=== PATIENT | female | born 1960 | race Caucasian/White ===

== ENCOUNTER 2017-03-10 00:02 | Emergency (ER) | payer SELFPAY ==
[~2017-03-10 00:02] MED LIST: ASPI1TAB69 PO
[2017-03-10] MEDS ORDERED: SODIUM CHLOR 0.9% 1000 ML INJ 1,000 ML IV SCH (00:17)
[2017-03-10] MEDS ORDERED: SODIUM CHLORIDE 0.9% FLUSH 10 ML FLUSH IVF PRN (00:30)
[2017-03-10] MEDS ORDERED: THIAMINE INJ 100 MG in SODIUM CHLORIDE 0.9% INJ 100 ML IV ONE (00:30)
[2017-03-10 00:34] VITALS: BP 100/52; PULSE 76; RESP 18; TEMP 97.8; O2SAT 95
[2017-03-10 00:46] LABS: AMPHETAMINE, URINE NEG (NEG); BARBITURATES, URINE NEG (NEG); COCAINE, URINE NEG (NEG)
[2017-03-10 00:53] LABS: BLOOD, URINE NEG (NEG); GLUCOSE,URINE NEG (NEG); KETONE, URINE NEG (NEG); NITRITE,URINE NEG (NEG); PH, URINE 5.5 (5.0-8.5)
[2017-03-10 00:54] LABS: AUTOMATED NEUTROPHIL # 7.3 TH/MM3 (1.8-7.7); BASOPHIL # 0.1 TH/MM3 (0-0.2); BASOPHIL % 1.1 % (0.0-2.0); EOSINOPHIL # 0.4 TH/MM3 (0-0.4); EOSINOPHIL % 3.9 % (0.0-4.0); HEMATOCRIT 43.3 % (35.0-46.0); HEMO FLAGS DIFF FINAL; LYMPH % 21.9 % (9.0-44.0); LYMPHOCYTE # 2.4 TH/MM3 (1.0-4.8); MEAN CELL VOLUME 94.9 FL (80.0-100.0); MEAN CORPUSCULAR HEMOGLOBIN 31.4 PG (27.0-34.0); MEAN CORPUSCULAR HGB CONC 33.1 % (32.0-36.0); MONO % 5.9 % (0.0-8.0); NEUT % 67.2 % (16.0-70.0); PLATELET COUNT 272 TH/MM3 (150-450); RED BLOOD COUNT 4.57 MIL/MM3 (4.00-5.30); URINE COLOR STRAW (YELLW/STRAW); WHITE BLOOD COUNT 10.8 TH/MM3 (4.0-11.0)
[2017-03-10 00:57] LABS: COMMENT (UR) CULT NOT INDICATED; CULTURE IF INDICATED CULT NOT INDICATED; RBC, URINE 0-2 /hpf (0-3); SQUAMOUS EPITHELIAL CELL URINE 0-5 /hpf (0-5); WBC, URINE 0-2 /hpf (0-5)
[2017-03-10 00:59] LABS: CHLORIDE 110 MEQ/L (98-107); POTASSIUM 3.5 MEQ/L (3.5-5.1); SODIUM (NA) 146 MEQ/L (136-145)
[2017-03-10 01:03] LABS: ANION GAP 10 MEQ/L (5-15); BICARBONATE 25.8 MEQ/L (21.0-32.0); BLOOD UREA NITROGEN 10 MG/DL (7-18)
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
[2017-03-10 01:06] LABS: ALT (GPT) 23 U/L (10-53); AST (GOT) 31 U/L (15-37)
[2017-03-10] MEDS ORDERED: IBUPROFEN 600 MG TAB ONE (02:12)
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
[2017-03-10 02:30] LABS: ALKALINE PHOSPHATASE 102 U/L (45-117); GLOMERULAR FILTRATION RATE 126 ML/MIN (>89); TOTAL BILIRUBIN ADULT 0.2 MG/DL (0.2-1.0)
[2017-03-10] MEDS ORDERED: IBUPROFEN 600 MG TAB PO ONE (02:45)
== END 2017-03-10 02:45 | disposition home or self-care (01) ==
LOC: PHED 00:02
DX: S00.93XA Contusion of unspecified part of head, initial encounter (principal); F10.129 Alcohol abuse with intoxication, unspecified; S16.1XXA Strain of muscle, fascia and tendon at neck level, initial encounter; S29.012A Strain of muscle and tendon of back wall of thorax, initial encounter; D64.9 Anemia, unspecified; F17.210 Nicotine dependence, cigarettes, uncomplicated; Y09 Assault by unspecified means; Y07.03 Male partner, perpetrator of maltreatment and neglect; Z59.0 Homelessness
CPT/HCPCS: 70450; 72125; 72128; 80053; 80307; 81001; 85025

== ENCOUNTER 2017-03-10 17:19 | Emergency (ER) | payer SELFPAY ==
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
== END 2017-03-10 17:25 | disposition left against medical advice (07) ==
LOC: PHED 17:19
DX: F10.129 Alcohol abuse with intoxication, unspecified (principal); F17.210 Nicotine dependence, cigarettes, uncomplicated; D64.9 Anemia, unspecified
CPT/HCPCS: 99281

== ENCOUNTER 2018-04-13 12:32 | Emergency (ER) | payer SELFPAY ==
[~2018-04-13] VITALS: Ht 157.5 cm; Wt 61.0 kg
[~2018-04-13 12:32] MED LIST changes: -ASPI1TAB69 PO; +CLIN300C5 PO
[2018-04-13] MEDS ORDERED: MUPI2%T TOPICAL (12:46)
[2018-04-13 12:49] VITALS: BP 130/65; PULSE 82; RESP 16; TEMP 98.1; O2SAT 100
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
== END 2018-04-13 12:58 | disposition home or self-care (01) ==
LOC: PHEFT 12:32
DX: R21 Rash and other nonspecific skin eruption (principal); F98.8 Other specified behavioral and emotional disorders with onset usually occurring in childhood and adolescence; D64.9 Anemia, unspecified; M19.049 Primary osteoarthritis, unspecified hand; F41.9 Anxiety disorder, unspecified; F32.9 Major depressive disorder, single episode, unspecified; F17.200 Nicotine dependence, unspecified, uncomplicated; Z88.5 Allergy status to narcotic agent; Z79.899 Other long term (current) drug therapy
CPT/HCPCS: 99283